=== PATIENT | female | born 1945 | race Caucasian/White ===

== ENCOUNTER 2018-02-19 08:51 | Day surgery (SDC) | payer MEDICARE, OTHER ==
[~2018-02-19 08:51] MED LIST: ALBU3IS INH; AMLO5 PO; ASPI81CH PO; BENZ100A PO; BUDE32NIS; BUME1; CLOP75 PO; COLE625; EZET10; FAMO10; FLUT220OIA; HYDCHL25; LOSARTAN-HCTZ1 EAC1 PO; MONT10T; OMEP20ER; PROBIOTIC1 EAC1 PO; Prednisone20 MG PO; SPIR25 PO; SPIR50; TIOT18 INH; VALS80
== END 2018-02-19 11:10 | disposition home or self-care (01) ==
LOC: ORSCSDS 08:51
PROVIDERS: Internal Medicine Gastroenterology
PROC: 0DB68ZX Excision of Stomach, Via Natural or Artificial Opening Endoscopic, Diagnostic (ICD-10-PCS; principal; 2018-02-19 10:15)
PROC: 0DBH8ZX Excision of Cecum, Via Natural or Artificial Opening Endoscopic, Diagnostic (ICD-10-PCS; principal; 2018-02-19 10:15)
PROC: 0DBP8ZX Excision of Rectum, Via Natural or Artificial Opening Endoscopic, Diagnostic (ICD-10-PCS; principal; 2018-02-19 10:15)
PROC: 0DBL8ZX Excision of Transverse Colon, Via Natural or Artificial Opening Endoscopic, Diagnostic (ICD-10-PCS; principal; 2018-02-19 10:15)
PROC: 0DBM8ZX Excision of Descending Colon, Via Natural or Artificial Opening Endoscopic, Diagnostic (ICD-10-PCS; principal; 2018-02-19 10:15)
PROC: 0DB88ZX Excision of Small Intestine, Via Natural or Artificial Opening Endoscopic, Diagnostic (ICD-10-PCS; principal; 2018-02-19 10:15)
DX: R19.4 Change in bowel habit (principal); K21.9 Gastro-esophageal reflux disease without esophagitis; D12.3 Benign neoplasm of transverse colon; D12.0 Benign neoplasm of cecum; K63.5 Polyp of colon; K62.1 Rectal polyp; K64.8 Other hemorrhoids; K64.4 Residual hemorrhoidal skin tags; K57.30 Diverticulosis of large intestine without perforation or abscess without bleeding; K20.9 Esophagitis, unspecified; K44.9 Diaphragmatic hernia without obstruction or gangrene; Z85.038 Personal history of other malignant neoplasm of large intestine; I10 Essential (primary) hypertension; J44.9 Chronic obstructive pulmonary disease, unspecified; G47.33 Obstructive sleep apnea (adult) (pediatric); E78.5 Hyperlipidemia, unspecified; E66.01 Morbid (severe) obesity due to excess calories; Z68.41 Body mass index [BMI] 40.0-44.9, adult; Z79.899 Other long term (current) drug therapy; Z87.891 Personal history of nicotine dependence
CPT/HCPCS: 88305; 88342; J2250

== ENCOUNTER → 2018-06-13 | Outpatient (CLI) | payer MEDICARE, OTHER ==
[2018-06-13 14:05] LABS: Protein, Urine Quantitative 5.8 mg/dL (0.0-11.9)
[2018-06-13 14:45] LABS: Microalbumin, Urine Quant. <5.000 mg/L (0.000-20.000)
== END ==
LOC: LAB SHORT 11:10 → LAB 11:10
PROVIDERS: Internal Medicine Nephrology
DX: N18.3 Chronic kidney disease, stage 3 (moderate) (principal); D63.1 Anemia in chronic kidney disease; N25.81 Secondary hyperparathyroidism of renal origin; E55.9 Vitamin D deficiency, unspecified; E78.00 Pure hypercholesterolemia, unspecified; R76.9 Abnormal immunological finding in serum, unspecified; R94.5 Abnormal results of liver function studies; R94.6 Abnormal results of thyroid function studies; D51.8 Other vitamin B12 deficiency anemias; D52.8 Other folate deficiency anemias; D50.9 Iron deficiency anemia, unspecified
CPT/HCPCS: 81050; 82043; 84156

== ENCOUNTER 2019-12-19 06:16 | Day surgery (SDC) | payer MEDICARE, OTHER ==
[~2019-12-19] VITALS: Ht 157.5 cm; Wt 102.8 kg
[~2019-12-19 06:16] MED LIST changes: +ALBU2.5V5 INH; +Aranesp40 MCG/0.4 INJ; +Aspirin EC81 MG PO; +B-121000 MC3 PO; +BUDE6HFA INH; +Calcium Magnes1 EACH PO; +FAMO10 PO; +FURO40 PO; +Flonase 0.05% N16 GM; +LOSARTAN POTAS100 MG PO; +Spironolactone25 MG PO; +THERA-D2000 UNIT PO
--- NOTE | 2019-12-19 07:08 | NUR ---
12/19/19 0708 Kaylee Moody 1ST IV ATTEMPT IN [facility], UNSUCCESSFUL, STARTED BY ASHLEE KERR
== END 2019-12-19 08:30 | disposition home or self-care (01) ==
LOC: ORSCSDS 06:16
PROVIDERS: Orthopaedic Surgery
PROC: 01N50ZZ Release Median Nerve, Open Approach (ICD-10-PCS; principal; 2019-12-19 07:30)
DX: G56.02 Carpal tunnel syndrome, left upper limb (principal); E66.9 Obesity, unspecified; Z68.41 Body mass index [BMI] 40.0-44.9, adult; K21.9 Gastro-esophageal reflux disease without esophagitis; G47.33 Obstructive sleep apnea (adult) (pediatric); Z87.891 Personal history of nicotine dependence; Z79.899 Other long term (current) drug therapy
CPT/HCPCS: J2250; J3010; J7120

== ENCOUNTER 2020-03-31 08:39 | Emergency (ER) | payer MEDICARE, OTHER ==
[2020-03-31 09:07] LABS: BASOPHILS ABSOLUTE AUTO 0.03 K/mm3 (0.00-0.23); BASOPHILS PERCENT AUTO 0 % (0-2); EOSINOPHILS ABSOLUTE AUTO 0.19 K/mm3 (0.00-0.68); EOSINOPHILS PERCENT AUTO 2 % (0-6); Hematocrit 35.3 % (33.0-51.0); Hemoglobin 10.8 g/dL (11.5-16.0); IMMATURE GRAN ABSOLUTE AUTO 0.09 K/mm3 (0.00-0.10); IMMATURE GRAN PERCENT AUTO 1 % (0-1); LYMPHOCYTES ABSOLUTE AUTO 1.83 K/mm3 (0.84-5.20); LYMPHOCYTES PERCENT AUTO 16 % (21-46); MONOCYTES ABSOLUTE AUTO 0.62 K/mm3 (0.16-1.47); MONOCYTES PERCENT AUTO 5 % (4-13); Mean Corpuscular HGB 28.4 pg (26.0-34.0); Mean Corpuscular HGB Conc 30.6 g/dL (31.5-36.5); Mean Corpuscular Volume 93 fL (80-100); Mean Platelet Volume 11.4 fL (9.1-12.4); NEUTROPHILS ABSOLUTE AUTO 8.73 K/mm3 (1.96-9.15); NEUTROPHILS PERCENT AUTO 76 % (41-73); Platelet Count 236 K/mm3 (150-400); RDW Coefficient Variation 13.4 % (11.7-14.2); RDW Standard Deviation 46.2 fL (35.1-46.3); White Blood Cell Count 11.49 K/mm3 (4.00-11.30)
[2020-03-31 09:32] LABS: Alanine Aminotransfer (ALT/SGP 25 U/L (12-78); Albumin, Blood 3.4 g/dL (3.4-5.0); Albumin/Globulin Ratio 0.8 (0.8-1.8); Alk Phos 90 U/L (50-136); Anion Gap 7 mmol/L (6-16); Aspartate Aminotrans (AST/SGOT 15 U/L (12-37); Bilirubin, Total 0.4 mg/dL (0.1-1.0); Blood Urea Nitrogen 21 mg/dL (8-24); Bun/Creatinine Ratio 16.9 (12.0-20.0); CO2, Blood 25 mmol/L (21-32); Calcium, Blood 8.9 mg/dL (8.5-10.1); Chloride, Blood 109 mmol/L (98-108); Creatinine, Blood 1.24 mg/dL (0.40-1.00); Globulin, Blood 4.2 g/dL (2.2-4.0); Glomerular Filtration Rate 45 (60-); Glucose, Blood 95 mg/dL (70-99); Potassium, Blood 4.4 mmol/L (3.5-5.5); Sodium, Blood 141 mmol/L (136-145); Total Protein, Blood 7.6 g/dL (6.4-8.2); Troponin I <0.015 ng/mL (0.000-0.040)
[2020-03-31] MEDS ORDERED: ALBU90OI INH (11:45)
== END 2020-03-31 12:30 | disposition home or self-care (01) ==
PROVIDERS: Emergency Medicine
DX: R00.0 Tachycardia, unspecified (principal); J43.9 Emphysema, unspecified; I10 Essential (primary) hypertension; Z79.82 Long term (current) use of aspirin; Z79.899 Other long term (current) drug therapy; Z87.891 Personal history of nicotine dependence; Z88.0 Allergy status to penicillin; Z88.6 Allergy status to analgesic agent; Z88.8 Allergy status to other drugs, medicaments and biological substances

== ENCOUNTER 2021-06-18 09:58 | Day surgery (SDC) | payer MEDICARE, OTHER ==
[~2021-06-18] VITALS: Ht 157.5 cm; Wt 102.9 kg
[~2021-06-18 09:58] MED LIST changes: +ALBU90OI INH; +Aspir 8181 MG PO; +BUDESONIDE0.5 MG/2 M INH; +CYAN500 PO; +FLUT.05NI; +LOSARTAN POTAS100 M1 PO; +SYMBICORT 160-4.6 GM INH; +VITAMIN D325 MC3 PO
[2021-06-18] MEDS ORDERED: ASPI81CH (11:03)
[2021-06-18] MEDS ORDERED: FISH OIL 1,2001 EAC7 (11:04)
== END 2021-06-18 12:42 | disposition home or self-care (01) ==
LOC: ORSCSDS 09:58
PROVIDERS: Internal Medicine Gastroenterology
PROC: 0DJD8ZZ Inspection of Lower Intestinal Tract, Via Natural or Artificial Opening Endoscopic (ICD-10-PCS; principal; 2021-06-18 11:15)
DX: Z12.11 Encounter for screening for malignant neoplasm of colon (principal); Z85.038 Personal history of other malignant neoplasm of large intestine; Z86.010 Personal history of colon polyps; K64.8 Other hemorrhoids; K64.4 Residual hemorrhoidal skin tags; E78.00 Pure hypercholesterolemia, unspecified; I10 Essential (primary) hypertension; G47.33 Obstructive sleep apnea (adult) (pediatric); J44.9 Chronic obstructive pulmonary disease, unspecified; K21.9 Gastro-esophageal reflux disease without esophagitis; N18.30 Chronic kidney disease, stage 3 unspecified; E66.01 Morbid (severe) obesity due to excess calories; Z68.41 Body mass index [BMI] 40.0-44.9, adult; Z87.891 Personal history of nicotine dependence; Z79.899 Other long term (current) drug therapy
CPT/HCPCS: J2704; J7120

== ENCOUNTER → 2022-02-23 | Outpatient (CLI) | payer OTHER ==
[~2022-02-23] MED LIST changes: +ASPI81CH; +FISH OIL 1,2001 EAC7
== END | disposition home or self-care (01) ==
LOC: LAB SHORT 09:06
DX: L57.0 Actinic keratosis (principal)
CPT/HCPCS: 88305

== ENCOUNTER 2023-01-09 10:41 | Day surgery (SDC) | payer OTHER ==
[~2023-01-09] VITALS: Ht 157.5 cm; Wt 93.5 kg
[~2023-01-09 10:41] MED LIST changes: -ASPI81CH; +Calcium Carbon500 MG PO; +FAMO20 PO; -FISH OIL 1,2001 EAC7; +FISH OIL 1,2001 EAC7 PO; +KRILL OIL500 MG PO
--- NOTE | 2023-01-09 13:18 | NUR ---
PT BELONGINGS PLACED UNDERNEATH GURNEY FOR SAFEKEEPING. PT GLASSES TAKEN TO PACU FOR SAFEKEEPING.
--- NOTE | 2023-01-09 16:33 | NUR ---
PT ARRIVED TO THE UNIT AT APPROXIMATELY 1633. PT ALERT AND ORIENTED. PT UNABLE TO REMOVE BLE R/T SPINAL ANESTHESIA. SPINAL SITE WNL. L KNEE INCISION WNL, DRESSING C/D/I.
--- NOTE | 2023-01-09 20:18 | NUR ---
SHIFT SUMMARY PT IS POD#0 FROM L TKA WITH DR. THORNTON. PT HAD SPINAL ANESTHESIA AND IS TILL HAVING DECREASED SENSATION AND MOVEMENT TO BLE, SENSATION AND MOVEMENT ARE IMPROVING. PAIN MANAGED WITH TYLENOL AT THIS TIME. PT IS TOLERATING PO. AWAITING VOID. PLAN FOR OOB WHEN PT REGAINS FULL SENSATIONG AND MOVEMENT TO BLE. REPORT GIVEN TO SYED ROSADO.
--- NOTE | 2023-01-10 04:43 | NUR ---
SHIFT SUMMARY POD1 L TKA WITH DR. THORNTON. PT HAS AQUACEL DRESSING ON L KNEE REMAINED CDI. POLAR PACK, SCD IN PLACED. PT AMBULATES 1PA WITH FWW AND GB IN THE BATHROOM. VOIDING WITHOUT ISSUE. TOLERATING PO INTAKE. DENIES N/V. VSS. PT ON ROOM AIR. WEARS CPAP AT NIGHT. AOX4. REPORTS MIN TO MOD PAIN. PAIN MANAGED WITH TYLENOL AND OXYCODONE. PT DENIES N/T. CALL LIGHT WITHIN REACH. PLAN FOR PT TO WORK WITH THERAPY TODAY AND POSS DC.
[2023-01-10 06:39] LABS: BASOPHILS ABSOLUTE AUTO 0.01 K/mm3 (0.00-0.23); BASOPHILS PERCENT AUTO 0 % (0-2); EOSINOPHILS ABSOLUTE AUTO 0.01 K/mm3 (0.00-0.68); EOSINOPHILS PERCENT AUTO 0 % (0-6); Hematocrit 33.9 % (33.0-51.0); Hemoglobin 10.8 g/dL (11.5-16.0); IMMATURE GRAN ABSOLUTE AUTO 0.11 K/mm3 (0.00-0.10); IMMATURE GRAN PERCENT AUTO 1 % (0-1); LYMPHOCYTES ABSOLUTE AUTO 1.14 K/mm3 (0.84-5.20); LYMPHOCYTES PERCENT AUTO 6 % (21-46); MONOCYTES ABSOLUTE AUTO 0.85 K/mm3 (0.16-1.47); MONOCYTES PERCENT AUTO 5 % (4-13); Mean Corpuscular HGB 28.2 pg (26.0-34.0); Mean Corpuscular HGB Conc 31.9 g/dL (31.5-36.5); Mean Corpuscular Volume 89 fL (80-100); Mean Platelet Volume 11.7 fL (9.1-12.4); NEUTROPHILS ABSOLUTE AUTO 16.11 K/mm3 (1.96-9.15); NEUTROPHILS PERCENT AUTO 88 % (41-73); Platelet Count 237 K/mm3 (150-400); RDW Coefficient Variation 14.2 % (11.7-14.2); RDW Standard Deviation 45.6 fL (35.1-46.3); Red Blood Cell Count 3.83 M/mm3 (3.80-5.20); White Blood Cell Count 18.23 K/mm3 (4.00-11.30)
[2023-01-10 07:09] LABS: Bun/Creatinine Ratio 24.3 (12.0-20.0); Creatinine, Blood 1.07 mg/dL (0.40-1.00); Magnesium, Blood 2.4 mg/dL (1.6-2.4); Potassium, Blood 4.5 mmol/L (3.5-5.5)
[2023-01-10] MEDS ORDERED: ACET500 PO (09:55)
[2023-01-10] MEDS ORDERED: OXYC5 PO (10:02)
--- NOTE | 2023-01-10 12:00 | NUR ---
DISCHARGE SUMMARY PT A&OX4, VSS/RA, MIRIAN PO, VOIDING WELL, AMB SBA FWW & GB, UP TO CHAIR ALL AM, PAIN MANAGED. PHYSICAL THERAPY TOLD ME PT PASSED AND READY FOR DC. IV DC'D. LEFT FLOOR VIA WC TO GO HOME WITH FAMILY, WITH ALL PERSONAL POSSESSIONS INCLUDING EXTRA AQUACEL DRESSINGS, POLAR SYLVIA, DC PKT. PT TOLD ME [facility] DC INS PROVIDED. PT REP UNDERSTANDING THOSE INSTRUCTIONS INC PAIN MGT, DRESSING CHANGES, OUTPT PT AND FU WITH SURGEON APPTS SCHEDULED, SHORT FREQUENT AMB W/FWW WITH REST PERIODS BLE ICED/ELEVATED.
== END 2023-01-10 13:00 | disposition home or self-care (01) ==
LOC: ORSCMMR 10:41 → ORD 13:15 → ORSCMMR 13:15 → SURS 16:32 → ORSCMMR 01-10 13:00
PROVIDERS: Orthopaedic Surgery
PROC: 0SRD0JA Replacement of Left Knee Joint with Synthetic Substitute, Uncemented, Open Approach (ICD-10-PCS; principal; 2023-01-09 13:15)
PROC: 8E0Y0CZ Robotic Assisted Procedure of Lower Extremity, Open Approach (ICD-10-PCS; principal; 2023-01-09 13:15)
DX: M17.12 Unilateral primary osteoarthritis, left knee (principal); I12.9 Hypertensive chronic kidney disease with stage 1 through stage 4 chronic kidney disease, or unspecified chronic kidney disease; N18.9 Chronic kidney disease, unspecified; G47.33 Obstructive sleep apnea (adult) (pediatric); K21.9 Gastro-esophageal reflux disease without esophagitis; Z87.891 Personal history of nicotine dependence; Z79.899 Other long term (current) drug therapy; E66.9 Obesity, unspecified; Z68.38 Body mass index [BMI] 38.0-38.9, adult; Z23 Encounter for immunization
CPT/HCPCS: 27447; 0055T; S2900; 36415; 73560-LT; 80048; 83735; 85025; 90686; 97110; 97116; 97162; A9270; C1776; J0171; J0690; J0735; J1885; J2250; J2370; J2704; J2795; J3010; J7120

== ENCOUNTER 2025-03-25 11:39 | Day surgery (SDC) | payer OTHER ==
[~2025-03-25] VITALS: Ht 157.5 cm; Wt 85.9 kg
[~2025-03-25 11:39] MED LIST changes: +ACET500 PO; +Balanced Salt Epinephrine Irrigation Solution 500 mL IR SCH; +Diazepam 5 MG Tab PO PRN; +Diazepam 5 MG Tab PO SCH; +Lidocaine HCl/Pf 1% 5 ML VIAL XX SCH; +NS 0 ML IV ONE; +OXYC5 PO; +Ondansetron 4 MG SoluTab MM PRN; +PHENYLEPHRINE\\TROPICAMIDE\\TETRACAINE OPHTHALMIC DILATING SOLN RIGHTEYE PRN; +Povidone-Iodine 450 DROP/30 ML Solution ONE; +Povidone-Iodine 450 DROP/30 ML Solution RIGHTEYE SCH; +Tetracaine HCl/Pf 0.5% Opth Soln 4 ml ONE
[2025-03-25] MEDS ORDERED: Diazepam 10 MG Tab ONE (11:41)
--- NOTE | 2025-03-25 11:59 | NUR ---
03/25/25 Lola Zhao 1156: ANXIETY 5/10 PER PATIENT REPORT 1157: 10 MG PO VALIUM GIVEN PER ORDERS. PULSE OXIMETER ON PATIENT AND CALL LIGHT WITHIN REACH.
[2025-03-25] MEDS ORDERED: BUDESONIDE-FO10.2 G2 (12:04)
[2025-03-25] MEDS ORDERED: LOSA50 PO (12:05)
[2025-03-25] MEDS ORDERED: AMLODIPINE BESYL5 MG PO (12:05)
[2025-03-25] MEDS ORDERED: FUROSEMIDE40 MG PO (12:05)
[2025-03-25] MEDS ORDERED: Ascorbic Acid500 M2 (12:06)
[2025-03-25] MEDS ORDERED: MONT5TCH PO (12:06)
[2025-03-25] MEDS ORDERED: KRILL OIL500 MG (12:07)
[2025-03-25] MEDS ORDERED: STOOL SOFTENER (12:07)
[2025-03-25] MEDS ORDERED: VITAMIN D (12:07)
[2025-03-25] MEDS ORDERED: VITAMIN B12500 MCG (12:07)
[2025-03-25] MEDS ORDERED: ALLEGRA ALLERG180 MG (12:07)
[2025-03-25] MEDS ORDERED: Moxifloxacin HCL 0.5 MG/0.1 ML 0.4MLSYR RIGHTEYE ONE (12:27)
--- NOTE | 2025-03-25 12:28 | NUR ---
03/25/25 1228 Latrice Connor 1223 BP 152/61, HR 77, O2 AT 100% ROOMAIR, 16 RESP
--- NOTE | 2025-03-25 12:39 | NUR ---
03/25/[address] AT BEDSIDE
[2025-03-25 12:40] VITALS: BP 139/47
== END 2025-03-25 12:59 | disposition home or self-care (01) ==
LOC: ORSCSDS 11:39
PROVIDERS: Student in an Organized Health Care Education/Training Program
PROC: 08RJ3JZ Replacement of Right Lens with Synthetic Substitute, Percutaneous Approach (ICD-10-PCS; principal; 2025-03-25 13:00)
DX: H25.813 Combined forms of age-related cataract, bilateral (principal); I12.9 Hypertensive chronic kidney disease with stage 1 through stage 4 chronic kidney disease, or unspecified chronic kidney disease; N18.9 Chronic kidney disease, unspecified; E78.5 Hyperlipidemia, unspecified; G47.33 Obstructive sleep apnea (adult) (pediatric); Z87.891 Personal history of nicotine dependence; Z79.82 Long term (current) use of aspirin; Z79.899 Other long term (current) drug therapy
CPT/HCPCS: A9270; J7040; V2632